=== PATIENT | male | born 1945 | race Caucasian/White ===

== ENCOUNTER 2017-10-15 09:14 | Inpatient (IN) | payer OTHER, MEDICARE ==
[~2017-10-15] VITALS: Ht 176.5 cm; Wt 96.1 kg
[2017-10-15] VITALS (12 sets, daily range): BP systolic 150–166; BP diastolic 60–80
[2017-10-15] MEDS ORDERED: nitroGLYCERIN 0.4mg SUBLingual tab SL PRN ×3 (09:35→10:55)
[2017-10-15] MEDS ORDERED: aspirin 81mg tab.chew PO ONE (09:35)
[2017-10-15] MEDS ORDERED: heparin 10,000 units/1 ML INJ IV ONE ×2 (09:40→11:00)
[2017-10-15] MEDS ORDERED: ATOR40TA PO (09:47)
[2017-10-15] MEDS ORDERED: SILD100T PO (09:48)
[2017-10-15] MEDS ORDERED: fentaNYL/PF 50MCG/1 ML 2ML syringe ONE (09:55)
[2017-10-15] MEDS ORDERED: iohexol 350 MG/1 ML 200ml bottle ONE (09:55)
[2017-10-15] MEDS ORDERED: LIDOcaine 1%/PF (10mg/ml) 5ml vial ONE (09:55)
[2017-10-15] MEDS ORDERED: midazolam 2 mg/2 ml injection ONE (09:55)
[2017-10-15 10:04] LABS: BASOPHILS % (AUTO) 0.8 % (0-1); EOSINOPHILS # (AUTO) 0.1 X10'3 (0-0.9); EOSINOPHILS % (AUTO) 2.6 % (0-6); HEMATOCRIT 41.8 % (42.0-52.0); HEMOGLOBIN 14.1 g/dl (14.0-17.9); LYMPHOCYTES # (AUTO) 1.1 X10'3 (1.1-4.8); LYMPHOCYTES % (AUTO) 20.6 % (21-51); MEAN CORPUSCULAR HEMOGLOBIN 35.7 PG (27.0-31.0); MEAN CORPUSCULAR HGB CONC 33.8 % (33.0-36.5); MEAN CORPUSCULAR VOLUME 105.4 FL (78-98); MEAN PLATELET VOLUME 7.2 FL (7.4-10.4); MONOCYTES # (AUTO) 0.7 X10'3 (0-0.9); MONOCYTES % (AUTO) 12.9 % (2-12); NEUTROPHILS # (AUTO) 3.3 X10'3 (1.8-7.7); NEUTROPHILS % (AUTO) 63.1 % (42-75); PLATELET COUNT 201 X10'3 (140-440); RED BLOOD COUNT 3.97 X10'6 (4.70-6.10); RED CELL DISTRIBUTION WIDTH 12.8 % (11.5-14.5); WHITE BLOOD COUNT 5.3 X10'3 (4.5-11.0)
[2017-10-15 10:10] LABS: ALANINE AMINOTRANSFERASE 69 U/L (12-78); ALBUMIN 3.8 G/DL (3.4-5.0); ALBUMIN/GLOBULIN RATIO 1.2 (1.1-1.5); ALKALINE PHOSPHATASE 103 IU/L (46-116); ANION GAP 7 (8-16); ASPARTATE AMINO TRANSFERASE 57 U/L (10-37); BILIRUBIN,TOTAL 0.9 MG/DL (0.1-1.0); BLOOD UREA NITROGEN 21 MG/DL (7-18); BUN/CREATININE RATIO 19.3 (5.4-32.0); CALCIUM 9.2 MG/DL (8.5-10.1); CHLORIDE 105 MMOL/L (99-107); CREATININE 1.09 MG/DL (0.60-1.10); GLUCOSE 114 MG/DL (70-104); POTASSIUM 3.7 MMOL/L (3.5-5.1); SODIUM 141 MMOL/L (135-145); TOTAL CARBON DIOXIDE 28.6 MMOL/L (24-32); TOTAL PROTEIN 7.1 G/DL (6.4-8.2); eGFR 66 ML/MIN
[2017-10-15 10:20] LABS: INR 1.1 INR; PROTHROMBIN TIME 11.4 SECONDS (9.0-12.0)
[2017-10-15 10:24] LABS: PARTIAL THROMBOPLASTIN TIME > 153 SECONDS (22-32)
[2017-10-15] MEDS ORDERED: tirofiban 5mg in NS 100mL 100 ML IV ONE (10:24)
[2017-10-15] MEDS ORDERED: heparin 1,000unit/ml 10ml vial 10 ML ONE (10:25)
[2017-10-15] MEDS ORDERED: atropine 0.1mg/ml 10ml syringe ONE (10:28)
[2017-10-15] MEDS ORDERED: MESSAGE TO NURSING PO ONE ×4 (10:40)
[2017-10-15] MEDS ORDERED: dextrose 50%-water 50ml dispensing syringe IV PRN (10:40)
[2017-10-15] MEDS ORDERED: MESSAGE TO NURSING IV ONE (10:40)
[2017-10-15] MEDS ORDERED: heparin 10,000 units/1 ML INJ IV PRN ×2 (11:00→20:45)
[2017-10-15] MEDS ORDERED: ringers solution, lacted 1,000 ML IV ONE (11:26)
[2017-10-15] MEDS ORDERED: calcium chloride 100 MG/1 ML inj IV ONE (12:00)
[2017-10-15] MEDS ORDERED: magnesium sulf 1 GM/2 ML ONE (12:00)
[2017-10-15] MEDS ORDERED: methylPREDNISolone sod. succ. 500mg inj ONE (12:00)
[2017-10-15] MEDS ORDERED: heparin 10,000 units/1 ML INJ ONE (12:00)
[2017-10-15] MEDS ORDERED: heparin 1,000 units/ml 10ml inj ONE (12:00)
[2017-10-15] MEDS ORDERED: LIDOcaine 2% (20 mg/ml) 5ml cardiac syringe ONE (12:00)
[2017-10-15] MEDS ORDERED: phenylephrine 10mg/ml inj IV ONE (12:00)
[2017-10-15] MEDS ORDERED: sodium bicarbonate (8.4%) 1 mEq/ml syringe ONE (12:00)
[2017-10-15] MEDS ORDERED: albumin (human) 25% 100 ML IV solution IV ONE (12:00)
[2017-10-15] MEDS: tirofiban 5mg in NS 100mL 100 ML IV SCH ×3 (12:34→23:22)
[2017-10-15 13:15] LABS: HEMOGLOBIN A1C 5.5 % (4.5-6.2)
[2017-10-15 13:22] LABS: ALBUMIN 3.6 G/DL (3.4-5.0); ANION GAP 9 (8-16); BLOOD UREA NITROGEN 18 MG/DL (7-18); BUN/CREATININE RATIO 20.9 (5.4-32.0); CALCIUM 8.8 MG/DL (8.5-10.1); CHLORIDE 106 MMOL/L (99-107); CHOL/HDL RATIO 2.2 (0.00-4.99); CHOLESTEROL 104 MG/DL (0-200); CREATININE 0.86 MG/DL (0.60-1.10); GLUCOSE 118 MG/DL (70-104); HDL CHOLESTEROL 47 MG/DL (35-60); LDL CHOLESTEROL 58 MG/DL (50-100); SODIUM 140 MMOL/L (135-145); TOTAL CARBON DIOXIDE 24.6 MMOL/L (24-32); TRIGLYCERIDES 17 MG/DL (20-135); eGFR 87 ML/MIN
[2017-10-15] MEDS ORDERED: HYDROcodone/acetaminophen 5mg/325mg tablet PO PRN ×2 (16:40)
[2017-10-15 17:25] LABS: ABG BASE EXCESS -1.3 mmol/L (-2.0-3.0); ABG HCO3 21.9 mmol/L (22.0-26.0); ABG OXYGEN SATURATION 96.7 % (95-98); ABG PCO2 (T) 32.2 mmHg (35.0-48.0); ABG PO2 (T) 84.8 mmHg (83-108); ALLEN'S TEST Positive; FCOHb 0.2 % (0.5-1.5); FO2Hb 96.5 % (94-100); TOTAL HEMOGLOBIN 13.7 G/dl (14.0-18.0)
[2017-10-15 17:44] LABS: INR 1.1 INR; PROTHROMBIN TIME 11.2 SECONDS (9.0-12.0)
[2017-10-15 19:49] LABS: MAGNESIUM 1.9 MG/DL (1.5-2.4); PHOSPHORUS 2.9 MG/DL (2.3-4.5); POTASSIUM 3.6 MMOL/L (3.5-5.1)
[2017-10-15] MEDS ORDERED: mupirocin 2% ointment 22GM NS SCH (20:00)
[2017-10-15] MEDS ORDERED: metoprolol tartrate 25mg tablet PO SCH (20:00)
[2017-10-15] MEDS ORDERED: magnesium Cl slow-release 64mg tablet PO PRN (20:15)
[2017-10-15] MEDS ORDERED: normal saline 1000ml 1,000 ML IV SCH (20:15)
[2017-10-15] MEDS ORDERED: potassium Cl 40MEQ/NS 500ml 500 ML IV PRN ×2 (20:15)
[2017-10-15] MEDS ORDERED: potassium Cl 20 mEq SR tablet PO PRN ×2 (20:15)
[2017-10-15] MEDS ORDERED: magnesium 2GM in 50ml NS 50 ML IV PRN (20:15)
[2017-10-15] MEDS ORDERED: magnesium 4gm in 100ml NS 100 ML IV PRN (20:15)
[2017-10-15] MEDS ORDERED: potassium Cl 20 mEq SR tablet PO STA (20:15)
[2017-10-16] VITALS (20 sets, daily range): BP systolic 119–169; BP diastolic 54–79
[2017-10-16 03:59] LABS: BASOPHILS % (AUTO) 0.3 % (0-1); EOSINOPHILS # (AUTO) 0.1 X10'3 (0-0.9); EOSINOPHILS % (AUTO) 1.6 % (0-6); HEMATOCRIT 38.7 % (42.0-52.0); HEMOGLOBIN 13.2 g/dl (14.0-17.9); LYMPHOCYTES # (AUTO) 1.5 X10'3 (1.1-4.8); LYMPHOCYTES % (AUTO) 24.3 % (21-51); MEAN CORPUSCULAR HEMOGLOBIN 35.4 PG (27.0-31.0); MEAN CORPUSCULAR VOLUME 104.2 FL (78-98); MEAN PLATELET VOLUME 7.3 FL (7.4-10.4); MONOCYTES # (AUTO) 0.7 X10'3 (0-0.9); MONOCYTES % (AUTO) 11.3 % (2-12); NEUTROPHILS # (AUTO) 3.8 X10'3 (1.8-7.7); NEUTROPHILS % (AUTO) 62.5 % (42-75); PLATELET COUNT 182 X10'3 (140-440); RED BLOOD COUNT 3.71 X10'6 (4.70-6.10); RED CELL DISTRIBUTION WIDTH 13.2 % (11.5-14.5); WHITE BLOOD COUNT 6.1 X10'3 (4.5-11.0)
[2017-10-16 04:08] LABS: ALBUMIN 3.2 G/DL (3.4-5.0); ANION GAP 9 (8-16); BLOOD UREA NITROGEN 14 MG/DL (7-18); BUN/CREATININE RATIO 16.1 (5.4-32.0); CALCIUM 8.3 MG/DL (8.5-10.1); CHLORIDE 107 MMOL/L (99-107); CREATININE 0.87 MG/DL (0.60-1.10); GLUCOSE 116 MG/DL (70-104); MAGNESIUM 2.2 MG/DL (1.5-2.4); POTASSIUM 4.1 MMOL/L (3.5-5.1); SODIUM 141 MMOL/L (135-145); TOTAL CARBON DIOXIDE 25.5 MMOL/L (24-32); eGFR 86 ML/MIN
[2017-10-16] MEDS: tirofiban 5mg in NS 100mL 100 ML IV SCH (05:33)
[2017-10-16] MEDS ORDERED: famotidine 20mg tablet PO ONE (06:00)
[2017-10-16] MEDS ORDERED: LORazepam 2 mg/ml vial IV ONE (06:00)
[2017-10-16] MEDS ORDERED: ceFAZolin inj. 3,000 MG in normal saline 100ml IV soln 100 ML IV ONE (06:00)
[2017-10-16] MEDS: insulin regular, human inj. 100 UNITS in normal saline 100ml IV soln 100 ML IV SCH ×10 (06:00→22:14)
[2017-10-16] MEDS ORDERED: SUFENTANIL CITRATE 50 MCG/ML 2ml ampule IV ONE (06:36)
[2017-10-16] MEDS ORDERED: isoflurane 100ml inhalation liquid IH ONE (06:37)
[2017-10-16] MEDS ORDERED: DOPamine/D5W 400mg/250ml bag IV ONE (06:37)
[2017-10-16] MEDS ORDERED: nitroGLYCERIN in D5W 50mg/250ml (Tridil) infusion IV ONE (06:37)
[2017-10-16] MEDS ORDERED: LIDOcaine 1%/PF (10mg/ml) 5ml vial ONE (06:42)
[2017-10-16] MEDS ORDERED: LORazepam 2 mg/ml vial ONE (06:42)
[2017-10-16] MEDS ORDERED: propofol inj 20 ML IV ONE (06:42)
[2017-10-16] MEDS ORDERED: pancuronium br 1mg/ml inj IV ONE (06:43)
[2017-10-16] MEDS ORDERED: rocuronium 10mg/ml inj IV ONE (06:43)
[2017-10-16 07:45] LABS: ABG BASE EXCESS -1.4 mmol/L (-2.0-3.0); ABG HCO3 22.1 mmol/L (22.0-26.0); ABG OXYGEN SATURATION 98.6 % (95-98); ABG PCO2 33.2 mmHg (35.0-45.0); ABG PH 7.441 (7.350-7.450); ABG PO2 133.8 mmHg (60.0-100.0); CL (ABG) 106 mmol/L (99-107); FCOHb 0.3 % (0.5-1.5); FMetHb 0.3 % (0.3-1.12); GLUCOSE (ABG) 121 mg/dl (70-105); IONIZED CA (ABG) 1.15 mmol/L (1.03-1.32); K (ABG) 3.9 mmol/L (3.3-5.1); NA (ABG) 137 mmol/L (135-145); TOTAL HEMOGLOBIN 12.6 G/dl (14.0-18.0)
[2017-10-16] MEDS ORDERED: heparin 10,000 units/1 ML INJ IJ ONE (07:46)
[2017-10-16] MEDS ORDERED: papaverine 30 mg/ml 2ml inj. IA ONE ×2 (07:48→11:09)
[2017-10-16] MEDS ORDERED: atorvastatin 20mg tablet PO SCH (08:00)
[2017-10-16] MEDS ORDERED: papaverine 30 mg/ml 2ml inj. ONE (08:00)
[2017-10-16] MEDS ORDERED: heparin 10,000 units/1 ML INJ ONE (08:00)
[2017-10-16] MEDS ORDERED: aspirin 81mg tab.chew PO SCH (08:30)
[2017-10-16] MEDS ORDERED: insulin Lispro (HumaLOG) vial - multi-dose SQ SCH (09:00)
[2017-10-16 09:01] LABS: ABG BASE EXCESS 2.1 mmol/L (-2.0-3.0); ABG HCO3 26.6 mmol/L (22.0-26.0); ABG OXYGEN SATURATION 98.6 % (95-98); ABG PCO2 41.2 mmHg (35.0-45.0); ABG PH 7.428 (7.350-7.450); ABG PO2 203.4 mmHg (60.0-100.0); CL (ABG) 106 mmol/L (99-107); FCOHb 0.3 % (0.5-1.5); FMetHb 0.5 % (0.3-1.12); FO2Hb 97.8 % (94-100); GLUCOSE (ABG) 112 mg/dl (70-105); IONIZED CA (ABG) 1.03 mmol/L (1.03-1.32); K (ABG) 5.4 mmol/L (3.3-5.1); NA (ABG) 135 mmol/L (135-145)
[2017-10-16 09:16] LABS: ABG BASE EXCESS VENOUS 1.8 mmol/L; ABG HCO3 VENOUS 27.2 mmol/L; ABG PCO2 VENOUS 45.9 mmHg; ABG PO2 VENOUS 48.1 mmHg; CL (ABG) 106 mmol/L (99-107); FCOHb VENOUS 0.3 %; FHHb VENOUS 16.3 %; FMetHb VENOUS 0.5 %; FO2Hb VENOUS 82.9 %; GLUCOSE (ABG) 119 mg/dl (70-105); IONIZED CA (ABG) 1.07 mmol/L (1.03-1.32); K (ABG) 4.6 mmol/L (3.3-5.1); NA (ABG) 136 mmol/L (135-145); TOTAL HEMOGLOBIN 10.2 G/dl (14.0-18.0)
[2017-10-16 09:51] LABS: ABG BASE EXCESS 0.8 mmol/L (-2.0-3.0); ABG HCO3 25.4 mmol/L (22.0-26.0); ABG OXYGEN SATURATION 98.6 % (95-98); ABG PCO2 40.4 mmHg (35.0-45.0); ABG PH 7.416 (7.350-7.450); ABG PO2 164.3 mmHg (60.0-100.0); CL (ABG) 108 mmol/L (99-107); FCOHb 0.3 % (0.5-1.5); FMetHb 0.3 % (0.3-1.12); GLUCOSE (ABG) 134 mg/dl (70-105); IONIZED CA (ABG) 1.06 mmol/L (1.03-1.32); NA (ABG) 136 mmol/L (135-145); TOTAL HEMOGLOBIN 9.9 G/dl (14.0-18.0)
[2017-10-16] MEDS ORDERED: MESSAGE TO NURSING PO ONE (10:00)
[2017-10-16 10:30] LABS: ABG BASE EXCESS 2.5 mmol/L (-2.0-3.0); ABG HCO3 27.5 mmol/L (22.0-26.0); ABG OXYGEN SATURATION 99.3 % (95-98); ABG PCO2 44.4 mmHg (35.0-45.0); ABG PO2 457.6 mmHg (60.0-100.0); CL (ABG) 107 mmol/L (99-107); FCOHb 0.3 % (0.5-1.5); FMetHb 0.4 % (0.3-1.12); FO2Hb 98.6 % (94-100); GLUCOSE (ABG) 131 mg/dl (70-105); IONIZED CA (ABG) 1.17 mmol/L (1.03-1.32); K (ABG) 4.7 mmol/L (3.3-5.1); NA (ABG) 136 mmol/L (135-145); TOTAL HEMOGLOBIN 9.3 G/dl (14.0-18.0)
[2017-10-16 11:06] LABS: ABG BASE EXCESS 0.7 mmol/L (-2.0-3.0); ABG HCO3 25.1 mmol/L (22.0-26.0); ABG OXYGEN SATURATION 99.1 % (95-98); ABG PH 7.426 (7.350-7.450); ABG PO2 309.3 mmHg (60.0-100.0); CL (ABG) 109 mmol/L (99-107); FCOHb 0.3 % (0.5-1.5); FMetHb 0.6 % (0.3-1.12); FO2Hb 98.2 % (94-100); GLUCOSE (ABG) 131 mg/dl (70-105); IONIZED CA (ABG) 1.21 mmol/L (1.03-1.32); K (ABG) 4.1 mmol/L (3.3-5.1); NA (ABG) 137 mmol/L (135-145); TOTAL HEMOGLOBIN 9.8 G/dl (14.0-18.0)
[2017-10-16] MEDS ORDERED: sodium chloride 0.45% 1,000 ML IV SCH (11:39)
[2017-10-16] MEDS ORDERED: nitroGLYCERIN-Tridil 50MG/D5W 250 ML IV PRN (11:39)
[2017-10-16] MEDS ORDERED: DOPamine 400mg/D5W 250ml 250 ML IV PRN (11:39)
[2017-10-16] MEDS ORDERED: niCARDipine/sod cl 20mg/200ml 200 ML IV PRN (11:39)
[2017-10-16] MEDS ORDERED: metoclopramide 5 mg/ml inj IV PRN (11:40)
[2017-10-16] MEDS ORDERED: magnesium 4gm in 100ml NS 100 ML IV PRN (11:40)
[2017-10-16] MEDS ORDERED: ondansetron/PF 4mg/2ml inj IV PRN (11:40)
[2017-10-16] MEDS ORDERED: sodium phosphate inj. 15 MMOL in dextrose 5%-water 150 ML IV PRN (11:40)
[2017-10-16] MEDS ORDERED: potassium Cl 20mEq/100mL bag 100 ML IV PRN ×2 (11:40)
[2017-10-16] MEDS ORDERED: dextrose 50%-water 50ml dispensing syringe IV PRN (11:40)
[2017-10-16] MEDS ORDERED: morphine sulfate 8 MG/ML SYRINGE IV PRN (11:40)
[2017-10-16] MEDS ORDERED: acetaminophen 325mg tablet PO PRN (11:40)
[2017-10-16] MEDS ORDERED: sodium phosphate inj. 30 MMOL in dextrose 5%-water 250 ML IV PRN (11:40)
[2017-10-16] MEDS ORDERED: Neutra Phos packet PO PRN (11:40)
[2017-10-16] MEDS ORDERED: insulin regular, human inj. 100 UNITS in normal saline 100ml IV soln 100 ML IV SCH ×2 (11:40)
[2017-10-16] MEDS ORDERED: normal saline 250ml IV soln 250 ML IV PRN (11:40)
[2017-10-16] MEDS ORDERED: magnesium hydroxide 30ml (MOM) UD suspension PO PRN (11:40)
[2017-10-16] MEDS ORDERED: potassium Cl 2 mEq/ml inj IV ONE (12:00)
[2017-10-16 12:10] LABS: ABG BASE EXCESS -0.1 mmol/L (-2.0-3.0); ABG HCO3 23.4 mmol/L (22.0-26.0); ABG OXYGEN SATURATION 98.9 % (95-98); ABG PCO2 (T) 32.8 mmHg (35.0-48.0); ABG PH (T) 7.466 (7.350-7.450); ABG PO2 (T) 168.1 mmHg (83-108); FCOHb 0.3 % (0.5-1.5); FMetHb 0.1 % (0.3-1.12); FO2Hb 98.5 % (94-100); MINUTE VOLUME 9 L/min; PEEP 5 cm H2O; RESPIRATORY RATE 12 b/min; RESPIRATORY RATE (OBSERVED) 12 b/min; TIDAL VOLUME 650 mL; TOTAL HEMOGLOBIN 12.7 G/dl (14.0-18.0)
[2017-10-16 12:12] LABS: BASOPHILS % (AUTO) 0.1 % (0-1); EOSINOPHILS # (AUTO) 0.1 X10'3 (0-0.9); EOSINOPHILS % (AUTO) 1.5 % (0-6); HEMATOCRIT 35.5 % (42.0-52.0); LYMPHOCYTES # (AUTO) 0.6 X10'3 (1.1-4.8); LYMPHOCYTES % (AUTO) 7.3 % (21-51); MEAN CORPUSCULAR HEMOGLOBIN 35.3 PG (27.0-31.0); MEAN CORPUSCULAR HGB CONC 33.9 % (33.0-36.5); MEAN PLATELET VOLUME 6.9 FL (7.4-10.4); MONOCYTES # (AUTO) 0.2 X10'3 (0-0.9); NEUTROPHILS # (AUTO) 7.2 X10'3 (1.8-7.7); NEUTROPHILS % (AUTO) 89.1 % (42-75); PLATELET COUNT 123 X10'3 (140-440); RED BLOOD COUNT 3.41 X10'6 (4.70-6.10); RED CELL DISTRIBUTION WIDTH 13.6 % (11.5-14.5); WHITE BLOOD COUNT 8.1 X10'3 (4.5-11.0)
[2017-10-16 12:26] LABS: ALANINE AMINOTRANSFERASE 65 U/L (12-78); ALBUMIN 2.9 G/DL (3.4-5.0); ALBUMIN/GLOBULIN RATIO 1.2 (1.1-1.5); ALKALINE PHOSPHATASE 53 IU/L (46-116); ANION GAP 6 (8-16); ASPARTATE AMINO TRANSFERASE 250 U/L (10-37); BILIRUBIN,TOTAL 0.9 MG/DL (0.1-1.0); BLOOD UREA NITROGEN 14 MG/DL (7-18); BUN/CREATININE RATIO 16.1 (5.4-32.0); CALCIUM 7.9 MG/DL (8.5-10.1); CHLORIDE 111 MMOL/L (99-107); CREATININE 0.87 MG/DL (0.60-1.10); GLUCOSE 145 MG/DL (70-104); MAGNESIUM 2.3 MG/DL (1.5-2.4); PHOSPHORUS 1.4 MG/DL (2.3-4.5); POTASSIUM 3.9 MMOL/L (3.5-5.1); SODIUM 143 MMOL/L (135-145); TOTAL CARBON DIOXIDE 26.1 MMOL/L (24-32); TOTAL PROTEIN 5.3 G/DL (6.4-8.2); eGFR 86 ML/MIN
[2017-10-16] MEDS: morphine sulfate 8 MG/ML SYRINGE IV PRN ×5 (12:44→17:45)
[2017-10-16] MEDS: insulin Lispro (HumaLOG) vial - multi-dose SQ SCH ×2 (13:00→16:23)
[2017-10-16 13:01] LABS: INR 1.2 INR; PARTIAL THROMBOPLASTIN TIME 30 SECONDS (22-32); PROTHROMBIN TIME 12.2 SECONDS (9.0-12.0)
[2017-10-16] MEDS: albumin (Human) 5% 250ml 250 ML IV PRN ×2 (13:37→15:45)
[2017-10-16] MEDS: potassium Cl 20mEq/100mL bag 100 ML IV PRN ×2 (13:46→17:15)
[2017-10-16] MEDS: CEFAZOLIN SODIUM/NORMAL SALINE 100 ML IV SCH ×2 (16:20→23:14)
[2017-10-16] MEDS: lactobacillus rhamnosus 10,000 MMU CELLS/CAPSULE PO SCH (16:23)
[2017-10-16 17:29] LABS: BASOPHILS % (AUTO) 0 % (0-1); EOSINOPHILS # (AUTO) 0.1 X10'3 (0-0.9); EOSINOPHILS % (AUTO) 1.3 % (0-6); HEMATOCRIT 32.2 % (42.0-52.0); HEMOGLOBIN 10.9 g/dl (14.0-17.9); LYMPHOCYTES # (AUTO) 0.5 X10'3 (1.1-4.8); LYMPHOCYTES % (AUTO) 5.4 % (21-51); MEAN CORPUSCULAR HEMOGLOBIN 35.4 PG (27.0-31.0); MEAN CORPUSCULAR HGB CONC 33.9 % (33.0-36.5); MEAN CORPUSCULAR VOLUME 104.4 FL (78-98); MEAN PLATELET VOLUME 6.7 FL (7.4-10.4); MONOCYTES # (AUTO) 0.3 X10'3 (0-0.9); MONOCYTES % (AUTO) 3.5 % (2-12); NEUTROPHILS # (AUTO) 7.5 X10'3 (1.8-7.7); NEUTROPHILS % (AUTO) 89.8 % (42-75); PLATELET COUNT 134 X10'3 (140-440); RED BLOOD COUNT 3.08 X10'6 (4.70-6.10); RED CELL DISTRIBUTION WIDTH 12.9 % (11.5-14.5); WHITE BLOOD COUNT 8.4 X10'3 (4.5-11.0)
[2017-10-16 17:38] LABS: ALBUMIN 3.3 G/DL (3.4-5.0); ANION GAP 6 (8-16); BLOOD UREA NITROGEN 16 MG/DL (7-18); BUN/CREATININE RATIO 15.2 (5.4-32.0); CALCIUM 7.8 MG/DL (8.5-10.1); CHLORIDE 111 MMOL/L (99-107); CREATININE 1.05 MG/DL (0.60-1.10); GLUCOSE 159 MG/DL (70-104); POTASSIUM 4.2 MMOL/L (3.5-5.1); SODIUM 143 MMOL/L (135-145); TOTAL CARBON DIOXIDE 26.1 MMOL/L (24-32); eGFR 69 ML/MIN
[2017-10-16] MEDS ORDERED: amiodarone 150mg/dext, iso-os 100 ML IV ONE (18:12)
[2017-10-16] MEDS ORDERED: amiodarone/D5 360MG/200ML BAG 200 ML IV ONE (18:29)
[2017-10-16] MEDS ORDERED: amiodarone/D5 360MG/200ML BAG 200 ML IV SCH (18:35)
[2017-10-16] MEDS ORDERED: amiodarone in dextrose, iso-osm 150mg/100ml bag IV ONE (18:35)
[2017-10-16 18:57] LABS: MAGNESIUM 2.1 MG/DL (1.5-2.4)
[2017-10-16] MEDS: magnesium 2GM in 50ml NS 50 ML IV PRN (19:11)
[2017-10-16] MEDS ORDERED: metoprolol tartrate 12.5mg (1/2 tablet) PO SCH (20:00)
[2017-10-16] MEDS: vancomycin/NS 1 GM ADD-VANTAGE 250 ML IV SCH (20:24)
[2017-10-16] MEDS: mupirocin 2% ointment 22GM NS SCH (20:24)
[2017-10-16] MEDS: docusate sod 100mg capsule PO SCH (20:51)
[2017-10-16] MEDS: HYDROcodone/acetaminophen 10/325mg tab PO PRN (20:52)
[2017-10-16 22:55] LABS: MAGNESIUM 2.6 MG/DL (1.5-2.4); PHOSPHORUS 2.8 MG/DL (2.3-4.5); POTASSIUM 4.2 MMOL/L (3.5-5.1)
[2017-10-16] MEDS ORDERED: potassium Cl 20mEq/100mL bag 100 ML IV ONE (23:24)
[2017-10-17] VITALS (22 sets, daily range): BP systolic 115–147; BP diastolic 52–79
[2017-10-17] MEDS: insulin regular, human inj. 100 UNITS in normal saline 100ml IV soln 100 ML IV SCH ×6 (01:14→11:29)
[2017-10-17 04:07] LABS: BASOPHILS % (AUTO) 0.1 % (0-1); EOSINOPHILS % (AUTO) 0.4 % (0-6); HEMATOCRIT 29.3 % (42.0-52.0); HEMOGLOBIN 9.9 g/dl (14.0-17.9); LYMPHOCYTES # (AUTO) 0.6 X10'3 (1.1-4.8); LYMPHOCYTES % (AUTO) 4.5 % (21-51); MEAN CORPUSCULAR HEMOGLOBIN 35.4 PG (27.0-31.0); MEAN CORPUSCULAR HGB CONC 33.7 % (33.0-36.5); MONOCYTES # (AUTO) 0.8 X10'3 (0-0.9); MONOCYTES % (AUTO) 6.4 % (2-12); NEUTROPHILS # (AUTO) 10.8 X10'3 (1.8-7.7); NEUTROPHILS % (AUTO) 88.6 % (42-75); PLATELET COUNT 124 X10'3 (140-440); RED BLOOD COUNT 2.79 X10'6 (4.70-6.10); WHITE BLOOD COUNT 12.2 X10'3 (4.5-11.0)
[2017-10-17 04:30] LABS: INR 1.1 INR; PARTIAL THROMBOPLASTIN TIME 29 SECONDS (22-32); PROTHROMBIN TIME 11.6 SECONDS (9.0-12.0)
[2017-10-17 04:33] LABS: ALANINE AMINOTRANSFERASE 57 U/L (12-78); ALBUMIN/GLOBULIN RATIO 1.3 (1.1-1.5); ALKALINE PHOSPHATASE 42 IU/L (46-116); ANION GAP 6 (8-16); ASPARTATE AMINO TRANSFERASE 194 U/L (10-37); BILIRUBIN,TOTAL 0.5 MG/DL (0.1-1.0); BLOOD UREA NITROGEN 18 MG/DL (7-18); BUN/CREATININE RATIO 18.2 (5.4-32.0); CALCIUM 7.5 MG/DL (8.5-10.1); CHLORIDE 109 MMOL/L (99-107); CREATININE 0.99 MG/DL (0.60-1.10); GLUCOSE 154 MG/DL (70-104); MAGNESIUM 2.4 MG/DL (1.5-2.4); PHOSPHORUS 2.9 MG/DL (2.3-4.5); POTASSIUM 4.5 MMOL/L (3.5-5.1); SODIUM 141 MMOL/L (135-145); TOTAL CARBON DIOXIDE 25.7 MMOL/L (24-32); TOTAL PROTEIN 5.3 G/DL (6.4-8.2); eGFR 74 ML/MIN
[2017-10-17] MEDS: HYDROcodone/acetaminophen 10/325mg tab PO PRN ×3 (05:15→21:19)
[2017-10-17] MEDS: magnesium 2GM in 50ml NS 50 ML IV PRN (05:55)
[2017-10-17] MEDS: pantoprazole 40mg Tablet.DR PO SCH (07:34)
[2017-10-17] MEDS: lactobacillus rhamnosus 10,000 MMU CELLS/CAPSULE PO SCH ×2 (07:34→17:24)
[2017-10-17] MEDS: aspirin 325mg tablet, delayed-release (Ecotrin) PO SCH (08:37)
[2017-10-17] MEDS: atorvastatin 10mg tablet PO SCH (08:37)
[2017-10-17] MEDS: CEFAZOLIN SODIUM/NORMAL SALINE 100 ML IV SCH ×2 (08:37→17:24)
[2017-10-17] MEDS: docusate sod 100mg capsule PO SCH ×2 (08:37→20:47)
[2017-10-17] MEDS: mupirocin 2% ointment 22GM NS SCH ×2 (08:43→20:48)
[2017-10-17] MEDS: metoprolol tartrate 12.5mg (1/2 tablet) PO SCH ×2 (08:45→20:00)
[2017-10-17] MEDS: insulin Lispro (HumaLOG) vial - multi-dose SQ SCH ×3 (08:59→19:02)
[2017-10-17] MEDS: vancomycin/NS 1 GM ADD-VANTAGE 250 ML IV SCH ×2 (09:47→20:48)
[2017-10-17] MEDS: amiodarone 200mg tablet PO SCH ×2 (10:25→20:47)
[2017-10-18] VITALS (14 sets, daily range): BP systolic 111–141; BP diastolic 62–82
[2017-10-18] MEDS: CEFAZOLIN SODIUM/NORMAL SALINE 100 ML IV SCH (01:14)
[2017-10-18] MEDS: HYDROcodone/acetaminophen 10/325mg tab PO PRN ×4 (04:05→20:20)
[2017-10-18 04:43] LABS: BASOPHILS % (AUTO) 0.1 % (0-1); EOSINOPHILS # (AUTO) 0.2 X10'3 (0-0.9); EOSINOPHILS % (AUTO) 1.5 % (0-6); HEMATOCRIT 30.9 % (42.0-52.0); HEMOGLOBIN 10.3 g/dl (14.0-17.9); LYMPHOCYTES # (AUTO) 1.3 X10'3 (1.1-4.8); LYMPHOCYTES % (AUTO) 10.4 % (21-51); MEAN CORPUSCULAR HEMOGLOBIN 35.1 PG (27.0-31.0); MEAN CORPUSCULAR HGB CONC 33.3 % (33.0-36.5); MEAN CORPUSCULAR VOLUME 105.2 FL (78-98); MEAN PLATELET VOLUME 7.9 FL (7.4-10.4); MONOCYTES # (AUTO) 0.8 X10'3 (0-0.9); NEUTROPHILS # (AUTO) 10.3 X10'3 (1.8-7.7); PLATELET COUNT 117 X10'3 (140-440); RED BLOOD COUNT 2.94 X10'6 (4.70-6.10); RED CELL DISTRIBUTION WIDTH 13.6 % (11.5-14.5); WHITE BLOOD COUNT 12.6 X10'3 (4.5-11.0)
[2017-10-18 04:58] LABS: ANION GAP 6 (8-16); BLOOD UREA NITROGEN 19 MG/DL (7-18); BUN/CREATININE RATIO 18.6 (5.4-32.0); CALCIUM 8.1 MG/DL (8.5-10.1); CHLORIDE 104 MMOL/L (99-107); CREATININE 1.02 MG/DL (0.60-1.10); GLUCOSE 125 MG/DL (70-104); PHOSPHORUS 2.7 MG/DL (2.3-4.5); POTASSIUM 4.6 MMOL/L (3.5-5.1); SODIUM 137 MMOL/L (135-145); TOTAL CARBON DIOXIDE 26.6 MMOL/L (24-32); eGFR 72 ML/MIN
[2017-10-18] MEDS: aspirin 325mg tablet, delayed-release (Ecotrin) PO SCH (08:25)
[2017-10-18] MEDS: amiodarone 200mg tablet PO SCH ×2 (08:25→20:02)
[2017-10-18] MEDS: metoprolol tartrate 12.5mg (1/2 tablet) PO SCH ×2 (08:25→20:02)
[2017-10-18] MEDS: pantoprazole 40mg Tablet.DR PO SCH (08:25)
[2017-10-18] MEDS: docusate sod 100mg capsule PO SCH ×2 (08:25→20:02)
[2017-10-18] MEDS: lactobacillus rhamnosus 10,000 MMU CELLS/CAPSULE PO SCH ×2 (08:25→17:47)
[2017-10-18] MEDS: atorvastatin 10mg tablet PO SCH (08:26)
[2017-10-18] MEDS: mupirocin 2% ointment 22GM NS SCH (08:26)
[2017-10-18] MEDS ORDERED: potassium Cl 20 mEq SR tablet PO PRN ×2 (08:35)
[2017-10-18] MEDS ORDERED: magnesium Cl slow-release 64mg tablet PO PRN (08:35)
[2017-10-18] MEDS ORDERED: magnesium 2GM in 50ml NS 50 ML IV PRN (08:35)
[2017-10-18] MEDS ORDERED: magnesium 4gm in 100ml NS 100 ML IV PRN (08:35)
[2017-10-18] MEDS ORDERED: potassium Cl 40MEQ/NS 500ml 500 ML IV PRN ×2 (08:35)
[2017-10-18] MEDS: insulin Lispro (HumaLOG) vial - multi-dose SQ SCH ×3 (09:00→18:00)
[2017-10-18] MEDS: potassium Cl 20 mEq SR tablet PO SCH (18:18)
[2017-10-18] MEDS: magnesium Cl slow-release 64mg tablet PO SCH (20:02)
[2017-10-19 03:05] VITALS: BP 114/56
[2017-10-19 05:42] LABS: BASOPHILS % (AUTO) 0.3 % (0-1); EOSINOPHILS # (AUTO) 0.1 X10'3 (0-0.9); EOSINOPHILS % (AUTO) 1.7 % (0-6); HEMATOCRIT 30.2 % (42.0-52.0); HEMOGLOBIN 10.3 g/dl (14.0-17.9); LYMPHOCYTES # (AUTO) 1.4 X10'3 (1.1-4.8); LYMPHOCYTES % (AUTO) 15.7 % (21-51); MEAN CORPUSCULAR HEMOGLOBIN 35.8 PG (27.0-31.0); MEAN CORPUSCULAR HGB CONC 34.2 % (33.0-36.5); MEAN CORPUSCULAR VOLUME 104.8 FL (78-98); MEAN PLATELET VOLUME 7.7 FL (7.4-10.4); MONOCYTES # (AUTO) 0.6 X10'3 (0-0.9); MONOCYTES % (AUTO) 6.4 % (2-12); NEUTROPHILS # (AUTO) 6.6 X10'3 (1.8-7.7); NEUTROPHILS % (AUTO) 75.9 % (42-75); PLATELET COUNT 124 X10'3 (140-440); RED BLOOD COUNT 2.88 X10'6 (4.70-6.10); RED CELL DISTRIBUTION WIDTH 13.4 % (11.5-14.5); WHITE BLOOD COUNT 8.6 X10'3 (4.5-11.0)
[2017-10-19] MEDS: HYDROcodone/acetaminophen 10/325mg tab PO PRN ×3 (05:43→19:56)
[2017-10-19 06:00] VITALS: BP 126/69
[2017-10-19 06:19] LABS: ALBUMIN 2.9 G/DL (3.4-5.0); ANION GAP 4 (8-16); BLOOD UREA NITROGEN 19 MG/DL (7-18); CALCIUM 8.6 MG/DL (8.5-10.1); CHLORIDE 105 MMOL/L (99-107); GLUCOSE 110 MG/DL (70-104); MAGNESIUM 2.2 MG/DL (1.5-2.4); POTASSIUM 4.6 MMOL/L (3.5-5.1); SODIUM 140 MMOL/L (135-145); TOTAL CARBON DIOXIDE 30.6 MMOL/L (24-32); eGFR 73 ML/MIN
[2017-10-19] MEDS: docusate sod 100mg capsule PO SCH ×2 (07:51→20:00)
[2017-10-19] MEDS: aspirin 325mg tablet, delayed-release (Ecotrin) PO SCH (07:52)
[2017-10-19] MEDS: potassium Cl 20 mEq SR tablet PO SCH ×2 (07:52→18:30)
[2017-10-19] MEDS: pantoprazole 40mg Tablet.DR PO SCH (07:52)
[2017-10-19] MEDS: magnesium Cl slow-release 64mg tablet PO SCH ×2 (07:52→18:29)
[2017-10-19] MEDS: atorvastatin 10mg tablet PO SCH (07:52)
[2017-10-19] MEDS: lactobacillus rhamnosus 10,000 MMU CELLS/CAPSULE PO SCH ×2 (07:53→17:35)
[2017-10-19] MEDS: amiodarone 200mg tablet PO SCH ×2 (07:53→19:55)
[2017-10-19] MEDS: metoprolol tartrate 12.5mg (1/2 tablet) PO SCH ×2 (07:53→19:56)
[2017-10-19] MEDS: K and/or MAG REPLACEMENT MC SCH (07:54)
[2017-10-19] MEDS: insulin Lispro (HumaLOG) vial - multi-dose SQ SCH (07:55)
[2017-10-19] MEDS ORDERED: pneumococcal 23-VAL P-sac vacc 25 mcg/0.5ml vial IMVAC ONE (10:00)
[2017-10-19] MEDS ORDERED: magnesium citrate 296ml oral solution PO ONE (10:15)
[2017-10-19 11:00] VITALS: BP 123/77
[2017-10-19 15:00] VITALS: BP 124/73
[2017-10-19 19:00] VITALS: BP 142/71
[2017-10-19 23:00] VITALS: BP 117/69
[2017-10-20 03:00] VITALS: BP 138/74
[2017-10-20 06:00] VITALS: BP 117/71
[2017-10-20] MEDS: potassium Cl 20 mEq SR tablet PO SCH (06:19)
[2017-10-20] MEDS: K and/or MAG REPLACEMENT MC SCH (06:19)
[2017-10-20] MEDS: magnesium Cl slow-release 64mg tablet PO SCH (06:20)
[2017-10-20] MEDS ORDERED: ASPI-41 PO (07:16)
[2017-10-20] MEDS ORDERED: METO25TA6 PO (07:16)
[2017-10-20] MEDS ORDERED: COL100C PO (07:16)
[2017-10-20] MEDS ORDERED: AMIO200T57 PO (07:16)
[2017-10-20 07:48] LABS: BASOPHILS % (AUTO) 0.3 % (0-1); EOSINOPHILS # (AUTO) 0.1 X10'3 (0-0.9); EOSINOPHILS % (AUTO) 2.1 % (0-6); HEMATOCRIT 29.8 % (42.0-52.0); HEMOGLOBIN 9.9 g/dl (14.0-17.9); LYMPHOCYTES # (AUTO) 0.9 X10'3 (1.1-4.8); LYMPHOCYTES % (AUTO) 14.8 % (21-51); MEAN CORPUSCULAR HEMOGLOBIN 35.2 PG (27.0-31.0); MEAN CORPUSCULAR HGB CONC 33.4 % (33.0-36.5); MEAN CORPUSCULAR VOLUME 105.5 FL (78-98); MONOCYTES # (AUTO) 0.6 X10'3 (0-0.9); MONOCYTES % (AUTO) 10.7 % (2-12); NEUTROPHILS # (AUTO) 4.4 X10'3 (1.8-7.7); NEUTROPHILS % (AUTO) 72.1 % (42-75); PLATELET COUNT 156 X10'3 (140-440); RED BLOOD COUNT 2.82 X10'6 (4.70-6.10); RED CELL DISTRIBUTION WIDTH 13.3 % (11.5-14.5); WHITE BLOOD COUNT 6.1 X10'3 (4.5-11.0)
[2017-10-20] MEDS: amiodarone 200mg tablet PO SCH (07:51)
[2017-10-20] MEDS: lactobacillus rhamnosus 10,000 MMU CELLS/CAPSULE PO SCH (07:51)
[2017-10-20] MEDS: atorvastatin 10mg tablet PO SCH (07:53)
[2017-10-20] MEDS: metoprolol tartrate 12.5mg (1/2 tablet) PO SCH (07:53)
[2017-10-20] MEDS: aspirin 325mg tablet, delayed-release (Ecotrin) PO SCH (07:53)
[2017-10-20] MEDS: docusate sod 100mg capsule PO SCH (07:54)
[2017-10-20] MEDS: pantoprazole 40mg Tablet.DR PO SCH (07:54)
[2017-10-20 08:14] LABS: ALBUMIN 2.9 G/DL (3.4-5.0); ANION GAP 4 (8-16); BLOOD UREA NITROGEN 16 MG/DL (7-18); BUN/CREATININE RATIO 14.3 (5.4-32.0); CALCIUM 8.6 MG/DL (8.5-10.1); CHLORIDE 104 MMOL/L (99-107); CREATININE 1.12 MG/DL (0.60-1.10); GLUCOSE 103 MG/DL (70-104); POTASSIUM 4.2 MMOL/L (3.5-5.1); SODIUM 138 MMOL/L (135-145); TOTAL CARBON DIOXIDE 30.4 MMOL/L (24-32); eGFR 64 ML/MIN
[2017-10-20] MEDS: HYDROcodone/acetaminophen 10/325mg tab PO PRN (08:36)
[2017-10-20 09:15] LABS: ACT @ 1.70 U 346 SEC (193-297); ACT @ 2.84 U 566 SEC (260-420); BASELINE ACT 144 SEC (101-148); PATIENT WEIGHT 76.0k KG
[2017-10-25 05:31] LABS: ACTIVATED CLOTTING TIME 139 SEC (101-148)
== END 2017-10-20 10:15 | disposition home or self-care (01) | DRG 231 ==
LOC: ER 09:14 → ICU 2S 10:53 → PCU 3S 10-18 13:25
PROVIDERS: ADMIT Internal Medicine Interventional Cardiology; ATTEND Thoracic Surgery (Cardiothoracic Vascular Surgery)
PROC: 4A023N7 Measurement of Cardiac Sampling and Pressure, Left Heart, Percutaneous Approach (ICD-10-PCS; principal; 2017-10-15)
PROC: 02703ZZ Dilation of Coronary Artery, One Artery, Percutaneous Approach (ICD-10-PCS; 2017-10-15)
PROC: B2111ZZ Fluoroscopy of Multiple Coronary Arteries using Low Osmolar Contrast (ICD-10-PCS; 2017-10-15)
PROC: B2151ZZ Fluoroscopy of Left Heart using Low Osmolar Contrast (ICD-10-PCS; 2017-10-15)
PROC: B3121ZZ Fluoroscopy of Left Subclavian Artery using Low Osmolar Contrast (ICD-10-PCS; 2017-10-15)
PROC: 02100Z9 Bypass Coronary Artery, One Artery from Left Internal Mammary, Open Approach (ICD-10-PCS; 2017-10-16)
PROC: 021309W Bypass Coronary Artery, Four or More Arteries from Aorta with Autologous Venous Tissue, Open Approach (ICD-10-PCS; 2017-10-16)
PROC: 06BP4ZZ Excision of Right Saphenous Vein, Percutaneous Endoscopic Approach (ICD-10-PCS; 2017-10-16)
PROC: 5A1221Z Performance of Cardiac Output, Continuous (ICD-10-PCS; 2017-10-16)
PROC: B24BZZ4 Ultrasonography of Heart with Aorta, Transesophageal (ICD-10-PCS; 2017-10-16)
PROC: 02HV33Z Insertion of Infusion Device into Superior Vena Cava, Percutaneous Approach (ICD-10-PCS; 2017-10-16)
PROC: 02HQ32Z Insertion of Monitoring Device into Right Pulmonary Artery, Percutaneous Approach (ICD-10-PCS; 2017-10-16)
PROC: 4A133B3 Monitoring of Arterial Pressure, Pulmonary, Percutaneous Approach (ICD-10-PCS; 2017-10-16)
PROC: 4A1239Z Monitoring of Cardiac Output, Percutaneous Approach (ICD-10-PCS; 2017-10-16)
DX: I21.19 ST elevation (STEMI) myocardial infarction involving other coronary artery of inferior wall (principal); I50.31 Acute diastolic (congestive) heart failure; I47.2 Ventricular tachycardia; I11.0 Hypertensive heart disease with heart failure; I25.10 Atherosclerotic heart disease of native coronary artery without angina pectoris; E78.5 Hyperlipidemia, unspecified; I34.0 Nonrheumatic mitral (valve) insufficiency; G47.33 Obstructive sleep apnea (adult) (pediatric); I10 Essential (primary) hypertension; Z79.899 Other long term (current) drug therapy; Z79.82 Long term (current) use of aspirin; Z87.891 Personal history of nicotine dependence; Z82.49 Family history of ischemic heart disease and other diseases of the circulatory system
CPT/HCPCS: 0232T; 93306; 93312; 93325; 93458; 96374; 99285; C9606; 36415; 36600; 71010; 80048; 80053; 80061; 82330; 82435; 82800; 82803; 82947; 82948; 83036; 83735; 83880; 84100; 84132; 84295; 84484; 85018; 85025; 85347; 85610; 85730; 86885; 86900; 86901; 86920; 87070; 90732; 93005; 93880; 93971; 94002; 94010; 94668; 94760; 97116; 97162; 97530; 99152; 99153; A4620; A6213; A6255; A6257; A6258; A6402; A6449; A7000; A7048; C1725; C1769; J0282; J0461; J0690; J1265; J1644; J1815; J2001; J2060; J2150; J2250; J2270; J2370; J2405; J2440; J2704; J2930; J3010; J3246; J3370; J3475; J3480; J3490; J7030; J7060; J7120; P9045; P9047; Q9967

== ENCOUNTER 2020-08-01 13:54 | Emergency (ER) | payer OTHER, MEDICARE ==
[~2020-08-01] VITALS: Ht 175.3 cm; Wt 79.5 kg
[~2020-08-01 13:54] MED LIST: AMIO200T61 PO; ASPI-41 PO; ATOR40TA PO; COL100C PO; METO25TA6 PO; SILD100T PO
[2020-08-01 13:57] VITALS: BP 145/76
[2020-08-01 14:22] LABS: BASOPHILS % (AUTO) 0.9 % (0-1); EOSINOPHILS # (AUTO) 0.2 X10'3 (0-0.9); HEMATOCRIT 43.8 % (42.0-52.0); HEMOGLOBIN 14.9 g/dl (14.0-17.9); LYMPHOCYTES # (AUTO) 1.7 X10'3 (1.1-4.8); LYMPHOCYTES % (AUTO) 31.3 % (21-51); MEAN CORPUSCULAR HEMOGLOBIN 36.2 PG (27.0-31.0); MEAN CORPUSCULAR HGB CONC 34.1 g/dL (33.0-36.5); MEAN CORPUSCULAR VOLUME 106.1 FL (78-98); MEAN PLATELET VOLUME 7.3 FL (7.4-10.4); MONOCYTES # (AUTO) 0.4 X10'3 (0-0.9); MONOCYTES % (AUTO) 7.7 % (2-12); NEUTROPHILS # (AUTO) 3.1 X10'3 (1.8-7.7); NEUTROPHILS % (AUTO) 57.1 % (42-75); PLATELET COUNT 200 X10'3 (140-440); RED BLOOD COUNT 4.13 X10'6 (4.70-6.10); WHITE BLOOD COUNT 5.3 X10'3 (4.5-11.0)
[2020-08-01 14:42] LABS: ALANINE AMINOTRANSFERASE 66 U/L (12-78); ALBUMIN 3.8 G/DL (3.4-5.0); ALBUMIN/GLOBULIN RATIO 0.9 (1.1-1.5); ALKALINE PHOSPHATASE 76 IU/L (46-116); ANION GAP 7 (8-16); ASPARTATE AMINO TRANSFERASE 37 U/L (10-37); BILIRUBIN,TOTAL 1.4 MG/DL (0.1-1.0); BLOOD UREA NITROGEN 16 MG/DL (7-18); BUN/CREATININE RATIO 15.8 (5.4-32.0); CALCIUM 9.6 MG/DL (8.5-10.1); CHLORIDE 106 MMOL/L (99-107); CREATININE 1.01 MG/DL (0.60-1.10); GLUCOSE 96 MG/DL (70-104); POTASSIUM 3.6 MMOL/L (3.5-5.1); SODIUM 144 MMOL/L (135-145); TOTAL CARBON DIOXIDE 30.9 MMOL/L (24-32); TOTAL PROTEIN 7.9 G/DL (6.4-8.2); eGFR 72 ML/MIN
== END 2020-08-01 14:43 | disposition home or self-care (01) ==
LOC: ER 13:54
DX: R00.1 Bradycardia, unspecified (principal); I25.10 Atherosclerotic heart disease of native coronary artery without angina pectoris; E78.00 Pure hypercholesterolemia, unspecified; I10 Essential (primary) hypertension; Z72.89 Other problems related to lifestyle; Z79.82 Long term (current) use of aspirin; Z79.899 Other long term (current) drug therapy
CPT/HCPCS: 36415; 71045; 80053; 83880; 84484; 85025; 93005; 99285

== ENCOUNTER 2022-12-22 17:34 | Emergency (ER) | payer OTHER, MEDICARE ==
[~2022-12-22] VITALS: Ht 175.3 cm; Wt 81.8 kg
[~2022-12-22 17:34] MED LIST changes: +LOP25T PO; -METO25TA6 PO
[2022-12-22] MEDS ORDERED: acetaminophen 325mg tablet PO ONE (18:40)
[2022-12-22] MEDS ORDERED: normal saline 1000ML IV soln IV ONE (18:50)
[2022-12-22 19:01] LABS: BASOPHILS % (AUTO) 0.1 % (0-1); EOSINOPHILS # (AUTO) 0.2 X10'3 (0-0.9); EOSINOPHILS % (AUTO) 3.4 % (0-6); HEMATOCRIT 41.5 % (42.0-52.0); HEMOGLOBIN 14.3 g/dl (14.0-17.9); LYMPHOCYTES # (AUTO) 0.2 X10'3 (1.1-4.8); MEAN CORPUSCULAR HEMOGLOBIN 35.7 PG (27.0-31.0); MEAN CORPUSCULAR HGB CONC 34.5 g/dL (33.0-36.5); MEAN CORPUSCULAR VOLUME 103.4 FL (78-98); MEAN PLATELET VOLUME 7.7 FL (7.4-10.4); MONOCYTES # (AUTO) 0.1 X10'3 (0-0.9); MONOCYTES % (AUTO) 2.5 % (2-12); NEUTROPHILS # (AUTO) 4.7 X10'3 (1.8-7.7); PLATELET COUNT 144 X10'3 (140-440); RED BLOOD COUNT 4.01 X10'6 (4.70-6.10); RED CELL DISTRIBUTION WIDTH 13.4 % (11.5-14.5); WHITE BLOOD COUNT 5.2 X10'3 (4.5-11.0)
[2022-12-22 19:16] LABS: ALANINE AMINOTRANSFERASE 106 U/L (12-78); ALBUMIN 3.2 G/DL (3.4-5.0); ALBUMIN/GLOBULIN RATIO 0.8 (1.1-1.5); ALKALINE PHOSPHATASE 213 IU/L (46-116); ANION GAP 9 (8-16); ASPARTATE AMINO TRANSFERASE 62 U/L (10-37); BILIRUBIN,TOTAL 2.3 MG/DL (0.1-1.0); BLOOD UREA NITROGEN 25 MG/DL (7-18); BUN/CREATININE RATIO 20.3 (5.4-32.0); CALCIUM 9.5 MG/DL (8.5-10.1); CHLORIDE 100 MMOL/L (99-107); CREATININE 1.23 MG/DL (0.60-1.10); GLUCOSE 125 MG/DL (70-104); POTASSIUM 3.7 MMOL/L (3.5-5.1); SODIUM 132 MMOL/L (135-145); TOTAL CARBON DIOXIDE 22.6 MMOL/L (24-32); TOTAL PROTEIN 7.2 G/DL (6.4-8.2); eGFR 57 ML/MIN
[2022-12-22] MEDS ORDERED: diphenhydrAMINE 25mg capsule PO ONE (19:55)
[2022-12-22 19:58] LABS: MONOTEST NEGATIVE (Neg)
[2022-12-22 21:15] VITALS: BP 145/75
[2022-12-22] MEDS ORDERED: CefTRIAXone 2gm/D5W 50ml BAG 50 ML IV ONE (21:50)
[2022-12-22 22:02] LABS: CLARITY,URINE SLIGHTLY CLOUDY (Clear); GLUCOSE, URINE NEGATIVE (Neg); KETONES,URINE TRACE mg/dl (Neg); LEUKOCYTE ESTERASE ,URINE NEGATIVE (Neg); NITRITES, URINE NEGATIVE (Neg); OCCULT BLOOD,URINE NEGATIVE (Neg); PROTEIN,URINE 100 mg/dl (Neg)
[2022-12-22 22:04] LABS: COLOR,URINE DARK YELLOW (Yellow); UA COLLECTION TYPE CLN CATCH MIDSTREAM
[2022-12-22 22:13] LABS: BACTERIA,URINE 1+ /HPF (Neg); RBC,URINE 0-2 /HPF (0-2); SQUAMOUS EPITHELIAL CELL,UR FEW /LPF (FEW); WBC,URINE 0-4 /HPF (0-4)
[2022-12-22 22:14] LABS: AMORPHOUS URATES 1+; FINE GRANULAR CAST 0-3 /LPF (NEGATIVE)
[2022-12-27] MEDS ORDERED: ASPI-1265 PO (22:14)
[2022-12-27] MEDS ORDERED: CETI10TA15 PO (22:15)
[2022-12-27] MEDS ORDERED: LACT1CAP65 PO (22:16)
[2022-12-27] MEDS ORDERED: MULT-1074 PO (22:16)
[2022-12-27] MEDS ORDERED: FLUT16SP11 BOTHNARES (22:17)
== END 2022-12-22 23:15 | disposition home or self-care (01) ==
LOC: ER 17:35
DX: R21 Rash and other nonspecific skin eruption (principal); R50.9 Fever, unspecified; R53.1 Weakness; M79.18 Myalgia, other site; I25.10 Atherosclerotic heart disease of native coronary artery without angina pectoris; E78.00 Pure hypercholesterolemia, unspecified; I10 Essential (primary) hypertension; Z87.891 Personal history of nicotine dependence; Z95.1 Presence of aortocoronary bypass graft; Z72.89 Other problems related to lifestyle; Z79.82 Long term (current) use of aspirin; Z79.899 Other long term (current) drug therapy
CPT/HCPCS: 36415; 71045; 80053; 81001; 83605; 84145; 85025; 86308; 87040; 96361; 96374; 99284; J0696; J7030; Q0163; 96360

== ENCOUNTER 2023-06-16 16:24 | Inpatient (IN) | payer OTHER, MEDICARE ==
[~2023-06-16] VITALS: Ht 175.3 cm; Wt 90.0 kg
[~2023-06-16 16:24] MED LIST changes: -AMIO200T61 PO; +ASPI-1265 PO; -ASPI-41 PO; -ATOR40TA PO; +CETI10TA15 PO; +CHLO473M2 MM; -COL100C PO; +FLUT16SP11 BOTHNARES; +GUAI600T45 PO; +LACT1CAP65 PO; -LOP25T PO; +MULT-1074 PO; -SILD100T PO
[2023-06-16] MEDS ORDERED: normal saline 1000ml 1,000 ML IV ONE (16:40)
[2023-06-16] MEDS ORDERED: morphine 2 MG/ML inj. syringe IV PRN (16:40)
[2023-06-16] MEDS ORDERED: ceFAZolin 1GM/D5W- ADD-VANTAGE 50 ML IV ONE (16:45)
[2023-06-16] MEDS ORDERED: TETanus/Pertussis (Acell)/Diphther VAC/PF (Tdap-Adult) 0.5ml syringe IMVAC ONE (16:45)
[2023-06-16] MEDS ORDERED: OMEG-5 PO (17:29)
[2023-06-16] MEDS ORDERED: GLUC-241 PO (17:29)
[2023-06-16] MEDS ORDERED: UBID200C37 PO (17:29)
[2023-06-16] MEDS ORDERED: VITA-268 PO (17:29)
[2023-06-16] MEDS ORDERED: ASCO-139 PO (17:29)
[2023-06-16] MEDS ORDERED: TURMERIC PO (17:29)
[2023-06-16] MEDS ORDERED: PSYL1040 PO (17:29)
[2023-06-16] MEDS ORDERED: NAPR-1170 PO (17:29)
[2023-06-16] MEDS ORDERED: PRAS25CA PO (17:29)
[2023-06-16] MEDS ORDERED: CHOL100046 PO (17:29)
[2023-06-16] MEDS ORDERED: ROSU20TA2 PO (17:29)
[2023-06-16] MEDS ORDERED: antivenin, crotalidae fab inj 2 VIAL in normal saline 250ml IV soln 250 ML IV ONE ×2 (17:30)
[2023-06-16 17:43] LABS: BASOPHILS % (AUTO) 0.6 % (0-1); EOSINOPHILS # (AUTO) 0.1 X10'3 (0-0.9); EOSINOPHILS % (AUTO) 2.3 % (0-6); HEMATOCRIT 41.4 % (42.0-52.0); HEMOGLOBIN 14.1 g/dl (14.0-17.9); LYMPHOCYTES # (AUTO) 1.4 X10'3 (1.1-4.8); LYMPHOCYTES % (AUTO) 24.9 % (21-51); MEAN CORPUSCULAR HEMOGLOBIN 35.4 PG (27.0-31.0); MEAN CORPUSCULAR HGB CONC 34.1 g/dL (33.0-36.5); MEAN CORPUSCULAR VOLUME 103.9 FL (78-98); MEAN PLATELET VOLUME 8.1 FL (7.4-10.4); MONOCYTES # (AUTO) 0.4 X10'3 (0-0.9); MONOCYTES % (AUTO) 6.6 % (2-12); NEUTROPHILS # (AUTO) 3.6 X10'3 (1.8-7.7); NEUTROPHILS % (AUTO) 65.6 % (42-75); PLATELET COUNT 51 X10'3 (140-440); RED BLOOD COUNT 3.98 X10'6 (4.70-6.10); RED CELL DISTRIBUTION WIDTH 13.2 % (11.5-14.5); WHITE BLOOD COUNT 5.5 X10'3 (4.5-11.0)
--- NOTE | 2023-06-16 17:50 | NUR ---
CALLED POISON CONTROL TO GET RECOMMENDATIONS. SPOKE TO ANNIA SHE RECOMMENDS HOURLY MEASUREMENT CHECKS (PLACED FLOWSHEET IN ROOM), GIVE 2-6 VIALS OF CROFAB NOW, DRAW INR, PLT AND FIBRINOGEN Q6HRS FOR 24HRS. IF MEASUREMENTS SWELL >2CM OR IF PLT OR FIBRINOGEN <100 GIVE 4-6 VIALS OF CROFAB AND THE 24HR CLOCK FOR LABS STARTS AGAIN.
[2023-06-16 17:59] LABS: ALANINE AMINOTRANSFERASE 55 U/L (12-78); ALBUMIN 4.1 G/DL (3.4-5.0); ALBUMIN/GLOBULIN RATIO 1.3 (1.1-1.5); ALKALINE PHOSPHATASE 69 IU/L (46-116); ANION GAP 10 (8-16); ASPARTATE AMINO TRANSFERASE 37 U/L (10-37); BILIRUBIN,TOTAL 1.8 MG/DL (0.1-1.0); BLOOD UREA NITROGEN 27 MG/DL (7-18); BUN/CREATININE RATIO 21.4 (10.0-20.0); CALCIUM 9.4 MG/DL (8.5-10.1); CHLORIDE 108 MMOL/L (99-107); CREATININE 1.26 MG/DL (0.60-1.10); GLUCOSE 95 MG/DL (70-104); POTASSIUM 3.7 MMOL/L (3.5-5.1); SODIUM 144 MMOL/L (135-145); TOTAL CARBON DIOXIDE 25.6 MMOL/L (24-32); TOTAL PROTEIN 7.2 G/DL (6.4-8.2); eCRCL 49 ML/MIN; eGFR 55 ML/MIN
[2023-06-16] MEDS ORDERED: potassium Cl 40MEQ/1/2NS 520ml 520 ML IV PRN (18:05)
[2023-06-16] MEDS ORDERED: magnesium Cl slow-release 64mg tablet PO PRN (18:05)
[2023-06-16] MEDS ORDERED: magnesium 4gm in 100ml NS 100 ML IV PRN (18:05)
[2023-06-16] MEDS ORDERED: ondansetron/PF 4mg/2ml inj IV PRN (18:05)
[2023-06-16] MEDS ORDERED: magnesium 2GM in 50ml NS 50 ML IV PRN (18:05)
[2023-06-16] MEDS ORDERED: mag hydrox/Alum hydrox/simeth 30ml oral suspension PO PRN (18:05)
[2023-06-16] MEDS ORDERED: magnesium hydroxide 30ml (MOM) UD suspension PO PRN (18:05)
[2023-06-16] MEDS ORDERED: acetaminophen 325mg tablet PO PRN (18:05)
[2023-06-16] MEDS ORDERED: potassium Cl 20 mEq SR tablet PO PRN ×2 (18:05)
--- NOTE | 2023-06-16 18:06 | NUR ---
pt refuses tetanus vaccine, pt was educated, pt verbalizes understanding
[2023-06-16 18:09] LABS: APTT 29 SECONDS (22-32); INR 1.2 INR; PROTHROMBIN TIME 12.7 SECONDS (9.0-12.0)
[2023-06-16 18:12] LABS: D-DIMER 0.23 MG/L FEU (0-0.50)
--- NOTE | 2023-06-16 18:15 | NUR ---
ASSUMED CARE OF PATIENT FROM TAMMIE KIMBROUGH. ALLYSON SHERMAN IN ROOM WORKING ON ADMISSION. PT SITTING IN BED WITH EVEN AND UNLABORED RESPIRATIONS. PATIENT IS ALERT AND ORIENTED X 4. PT DENIES ANY NEEDS AT THIS TIME.
[2023-06-16 18:18] LABS: AMYLASE 39 U/L (25-115); CKMB RELATIVE INDEX 1.5 RATIO (0-2.5); CREATINE KINASE 164 U/L (39-308); CREATINE KINASE MB 2.4 ng/ml (0.3-3.6); ETHANOL < 10 MG/DL (<10); LIPASE 54 U/L (73-393)
[2023-06-16 18:34] LABS: PLATELET ESTIMATE DECREASED
[2023-06-16 18:35] LABS: BURR CELLS 2+
--- NOTE | 2023-06-16 18:45 | NUR ---
LOW SODIUM TRAY ORDERED FOR PT
[2023-06-16 19:16] LABS: BILIRUBIN,URINE NEGATIVE (Neg); CLARITY,URINE CLEAR (Clear); GLUCOSE, URINE NEGATIVE (Neg); KETONES,URINE NEGATIVE (Neg); LEUKOCYTE ESTERASE ,URINE NEGATIVE (Neg); NITRITES, URINE NEGATIVE (Neg); OCCULT BLOOD,URINE NEGATIVE (Neg); PH,URINE 5.5 (4.8-8.0); PROTEIN,URINE NEGATIVE (Neg); UROBILINOGEN,URINE 0.2 E.U/dL (0.2-1.0)
[2023-06-16 19:20] LABS: COLOR,URINE DARK YELLOW (Yellow); UA COLLECTION TYPE CLN CATCH MIDSTREAM
[2023-06-16] MEDS: K and/or MAG REPLACEMENT MC SCH (20:00)
[2023-06-16] MEDS: docusate sod 100mg capsule PO SCH (20:00)
--- NOTE | 2023-06-16 20:02 | NUR ---
PATIENT GIVEN LOW SODIUM DIET.
--- NOTE | 2023-06-16 20:20 | NUR ---
MEASUREMENTS FOR [place] [facility] ANTIVENOM ADMINISTRATION CHECKLIST COMPLETED. SEE PAPER FOR MORE INFORMATION. PATIENT EATING, RESPIRATIONS ARE EVEN AND UNLABORED, PT IN NO ACUTE DISTRESS. DENIES ANY NEEDS AT THIS TIME.
--- NOTE | 2023-06-16 21:27 | NUR ---
Patient ambulated to the restroom with assistance from with steady gait. Denies dizziness at this time.
--- NOTE | 2023-06-16 22:15 | NUR ---
Measurements documented for [place] [facility] Antivenom Administration Checklist. See paper for more information. Patient in bed in no acute distress. Respirations are even and unlabored. Pt denies any new neds. RT at bedside.
--- NOTE | 2023-06-16 23:28 | NUR ---
Spoke with Whitley from [place] [facility]. Notified Elian of PT, INR, and PLT lab results, 2 vials of Crofab given, and taking hourly measurements. Notified Elian new set of labs drawn at 2321 post 6 hours after initial labs. Elian stated if PLT or fibrinogen come back below 100, he recommended giving the patient 6 vials of additional Crofab. Elian stated he would call back again later to check on patient data collector could reach out with any additional needs. RN verbalized understanding.
--- NOTE | 2023-06-16 23:35 | NUR ---
patient hospital bed no needs at this time
[2023-06-16 23:40] LABS: BASOPHILS % (AUTO) 0.5 % (0-1); EOSINOPHILS # (AUTO) 0.1 X10'3 (0-0.9); EOSINOPHILS % (AUTO) 1.7 % (0-6); HEMATOCRIT 41.2 % (42.0-52.0); HEMOGLOBIN 13.9 g/dl (14.0-17.9); LYMPHOCYTES # (AUTO) 1.6 X10'3 (1.1-4.8); LYMPHOCYTES % (AUTO) 20.6 % (21-51); MEAN CORPUSCULAR HEMOGLOBIN 35.7 PG (27.0-31.0); MEAN CORPUSCULAR HGB CONC 33.8 g/dL (33.0-36.5); MEAN CORPUSCULAR VOLUME 105.6 FL (78-98); MEAN PLATELET VOLUME 7.3 FL (7.4-10.4); MONOCYTES # (AUTO) 0.7 X10'3 (0-0.9); MONOCYTES % (AUTO) 8.7 % (2-12); NEUTROPHILS # (AUTO) 5.3 X10'3 (1.8-7.7); NEUTROPHILS % (AUTO) 68.5 % (42-75); RED CELL DISTRIBUTION WIDTH 13.1 % (11.5-14.5); WHITE BLOOD COUNT 7.7 X10'3 (4.5-11.0)
[2023-06-16 23:44] LABS: APTT 28 SECONDS (22-32); FIBRINOGEN 232 MG/DL (177-424); INR 1.2 INR; PROTHROMBIN TIME 13.1 SECONDS (9.0-12.0)
[2023-06-17] VITALS (13 sets, daily range): BP systolic 126–156; BP diastolic 50–94; PULSE 41–57; RESP 15–18; TEMP 96.4–98.4; O2SAT 94–98
--- NOTE | 2023-06-17 00:15 | NUR ---
Measurements for [place] [facility] Antivenom Administration checklist. Per checklist, patient's swelling is decreasing in all three marked areas. See checklist for more information. Patient resting in bed with eyes closed in no acute distress. Respirations even and unlabored. Pt's right arm is elevated on pillows. Denies any additional needs at this time.
[2023-06-17 00:22] LABS: PLATELET COUNT 86 X10'3 (140-440)
--- NOTE | 2023-06-17 00:33 | NUR ---
CALLED AND SPOKE WITH DR HENDERSON. NOTIFIED DR HENDERSON OF PLT-82, PT SWELLING DECREASING, AND PT DOES NOT HAVE ANY COMPLAINTS. STATED POISON CONTROL RECOMMENDED ANOTHER 6 VIALS OF CROFAB IF PLT COUNT <100. DR HENDERSON STATED TO FOLLOW POISON CONTROL'S RECOMMENDATIONS.
[2023-06-17] MEDS ORDERED: antivenin, crotalidae fab inj 6 VIAL in normal saline 250ml IV soln 250 ML IV STA ×2 (00:37)
--- NOTE | 2023-06-17 00:48 | NUR ---
N[facility]ARD HELPER PHONE #
--- NOTE | 2023-06-17 01:17 | NUR ---
Patient laying in bed with eye closed. Respirations are even and unlabored. Notified patient of need to administer more Crofab based upon PLT count. Pt verbalized understanding. Measurements for [place] [facility] Antivenom Administration Checklist taken. See checklist for more measurement information. Pt denied any needs at this time.
--- NOTE | 2023-06-17 02:29 | NUR ---
Patient resting quietly in bed with eyes closed. Measurements for [place] [facility] Antivenom Checklist taken. See checklist for measurement information. Respirations even and unlabored. Crofab initiated. Pt denies any additional needs at this time.
--- NOTE | 2023-06-17 03:15 | NUR ---
PATIENT RESTING IN BED WITH EYES CLOSED IN NO ACUTE DISTRESS. RESPIRATIONS ARE EVEN AND UNLABORED. MEASUREMENTS FOR [place] [facility] ANTIVENOM CHECKLIST TAKEN. SEE CHECKLIST FOR MEASUREMENTS. PT DENIES ANY NEEDS AT THIS TIME.
--- NOTE | 2023-06-17 04:15 | NUR ---
PATIENT RESTING IN BED WITH EYES CLOSED. PT IN NO ACUE DISTRESS. RESPIRATIONS ARE EVEN AND UNLABORED. MEASUREMENTS TAKEN AND CHARTED ON [place] [facility] ANTIVENOM CHECKLIST. SEE CHECKLIST FOR MORE INFORMATION. PT DENIES ANY NEEDS AT THIS TIME.
--- NOTE | 2023-06-17 05:16 | NUR ---
PATIENT RESTING IN BED WITH EYES CLOSED. PT IN NO ACUTE DISTRESS. RESPIRATION ARE EVEN AND UNLABBORED. MEASUREMENTS TAKEN AND CHARTED ON [place] [facility] ANTIVENOM CHECKLIST. SEE CHECKLIST FOR MORE INFORMATION. PT DENIES ANY NEEDS AT THIS TIME
--- NOTE | 2023-06-17 06:34 | NUR ---
Patient resting in bed with eyes closed. Pt in no acute distress. Respirations are even and unlabored. Pt denies any needs at this time. Measurements taken and charted on checklist.
[2023-06-17] MEDS: docusate sod 100mg capsule PO SCH ×2 (08:00→20:00)
[2023-06-17] MEDS: K and/or MAG REPLACEMENT MC SCH ×2 (08:00→20:00)
--- NOTE | 2023-06-17 08:26 | NUR ---
Poison Control called wants an update about the patient. Spoke to Ross. I also called lab to remind about the morning labs due
[2023-06-17 08:48] LABS: BASOPHILS % (AUTO) 0.8 % (0-1); EOSINOPHILS # (AUTO) 0.1 X10'3 (0-0.9); EOSINOPHILS % (AUTO) 2.5 % (0-6); HEMATOCRIT 41.6 % (42.0-52.0); HEMOGLOBIN 14.2 g/dl (14.0-17.9); LYMPHOCYTES # (AUTO) 1.4 X10'3 (1.1-4.8); MEAN CORPUSCULAR HEMOGLOBIN 36.2 PG (27.0-31.0); MEAN CORPUSCULAR HGB CONC 34.2 g/dL (33.0-36.5); MEAN CORPUSCULAR VOLUME 105.8 FL (78-98); MEAN PLATELET VOLUME 7.3 FL (7.4-10.4); MONOCYTES # (AUTO) 0.4 X10'3 (0-0.9); MONOCYTES % (AUTO) 7.8 % (2-12); NEUTROPHILS # (AUTO) 3.6 X10'3 (1.8-7.7); NEUTROPHILS % (AUTO) 63.9 % (42-75); PLATELET COUNT 163 X10'3 (140-440); RED BLOOD COUNT 3.93 X10'6 (4.70-6.10); RED CELL DISTRIBUTION WIDTH 13.2 % (11.5-14.5); WHITE BLOOD COUNT 5.7 X10'3 (4.5-11.0)
[2023-06-17 09:02] LABS: CALCIUM 8.9 MG/DL (8.5-10.1)
[2023-06-17 09:09] LABS: ALANINE AMINOTRANSFERASE 48 U/L (12-78); ALBUMIN 3.5 G/DL (3.4-5.0); ALBUMIN/GLOBULIN RATIO 1.2 (1.1-1.5); ALKALINE PHOSPHATASE 57 IU/L (46-116); ANION GAP 6 (8-16); ASPARTATE AMINO TRANSFERASE 34 U/L (10-37); BILIRUBIN,TOTAL 1.9 MG/DL (0.1-1.0); BLOOD UREA NITROGEN 26 MG/DL (7-18); CHLORIDE 109 MMOL/L (99-107); CREATININE 1.18 MG/DL (0.60-1.10); GLUCOSE 103 MG/DL (70-104); MAGNESIUM 1.9 MG/DL (1.5-2.4); POTASSIUM 4.1 MMOL/L (3.5-5.1); SODIUM 142 MMOL/L (135-145); TOTAL PROTEIN 6.5 G/DL (6.4-8.2); eCRCL 52 ML/MIN; eGFR 60 ML/MIN
[2023-06-17 09:15] LABS: APTT 28 SECONDS (22-32); INR 1.2 INR; PROTHROMBIN TIME 12.4 SECONDS (9.0-12.0)
[2023-06-17 09:19] LABS: FIBRINOGEN 293 MG/DL (177-424)
--- NOTE | 2023-06-17 10:06 | NUR ---
Phone conversation with poison control Ross at this time, update given with lab results and patient status as well as vital signs. Per poison control plt and fibrinogen lab repeat at 2200 this evening and then prior to DC at 0000 on 06/18/22. If <100 PLT and fibrinogen or increase in swelling then give additional crofab 4-6 vials.
--- NOTE | 2023-06-17 17:17 | NUR ---
Called poison control spoke with LUIS E Arambula reported right upper arm circumference increased more than 2 cm, recommends crofab 4-6 vials, monitor patient x 24 hours after last dose, fibrinogen every 8 hours and platelet level Q 24 hours.
[2023-06-17] MEDS ORDERED: antivenin, crotalidae fab inj 4 VIAL in normal saline 250ml IV soln 250 ML IV STA ×2 (17:18)
--- NOTE | 2023-06-17 17:36 | NUR ---
Called pharmacy, [place] not ready yet.
--- NOTE | 2023-06-17 18:11 | NUR ---
Problems reprioritized. Patient report given, questions answered & plan of care reviewed with Yamilet KIMBROUGH.
[2023-06-17] MEDS ORDERED: atorvastatin 20mg tablet PO SCH (21:00)
[2023-06-17 22:43] LABS: BASOPHILS % (AUTO) 0.3 % (0-1); EOSINOPHILS # (AUTO) 0.2 X10'3 (0-0.9); EOSINOPHILS % (AUTO) 2.9 % (0-6); HEMATOCRIT 41.7 % (42.0-52.0); HEMOGLOBIN 14.1 g/dl (14.0-17.9); LYMPHOCYTES # (AUTO) 1.6 X10'3 (1.1-4.8); LYMPHOCYTES % (AUTO) 27.2 % (21-51); MEAN CORPUSCULAR HEMOGLOBIN 35.7 PG (27.0-31.0); MEAN CORPUSCULAR HGB CONC 33.7 g/dL (33.0-36.5); MEAN CORPUSCULAR VOLUME 105.8 FL (78-98); MEAN PLATELET VOLUME 7.6 FL (7.4-10.4); MONOCYTES # (AUTO) 0.5 X10'3 (0-0.9); MONOCYTES % (AUTO) 7.6 % (2-12); NEUTROPHILS # (AUTO) 3.7 X10'3 (1.8-7.7); PLATELET COUNT 158 X10'3 (140-440); RED BLOOD COUNT 3.94 X10'6 (4.70-6.10); RED CELL DISTRIBUTION WIDTH 13.3 % (11.5-14.5)
[2023-06-17 22:55] LABS: ALANINE AMINOTRANSFERASE 46 U/L (12-78); ALBUMIN 3.4 G/DL (3.4-5.0); ALBUMIN/GLOBULIN RATIO 1.1 (1.1-1.5); ALKALINE PHOSPHATASE 68 IU/L (46-116); ANION GAP 6 (8-16); ASPARTATE AMINO TRANSFERASE 35 U/L (10-37); BILIRUBIN,TOTAL 1.3 MG/DL (0.1-1.0); BLOOD UREA NITROGEN 26 MG/DL (7-18); BUN/CREATININE RATIO 21.1 (10.0-20.0); CALCIUM 9.2 MG/DL (8.5-10.1); CHLORIDE 107 MMOL/L (99-107); CREATININE 1.23 MG/DL (0.60-1.10); GLUCOSE 90 MG/DL (70-104); MAGNESIUM 1.9 MG/DL (1.5-2.4); POTASSIUM 3.7 MMOL/L (3.5-5.1); SODIUM 142 MMOL/L (135-145); TOTAL CARBON DIOXIDE 28.9 MMOL/L (24-32); TOTAL PROTEIN 6.5 G/DL (6.4-8.2); eCRCL 50 ML/MIN; eGFR 57 ML/MIN
--- NOTE | 2023-06-17 22:55 | NUR ---
circ of rt arm not increasing in size at this time - stable at 35cm bicep
[2023-06-17 23:00] LABS: FIBRINOGEN 305 MG/DL (177-424)
[2023-06-18] VITALS (13 sets, daily range): BP systolic 120–146; BP diastolic 55–70; PULSE 43–56; RESP 10–18; TEMP 97–97.9; O2SAT 94–98
[2023-06-18 05:57] LABS: MAGNESIUM 1.7 MG/DL (1.5-2.4); POTASSIUM 3.6 MMOL/L (3.5-5.1)
[2023-06-18 06:15] LABS: FIBRINOGEN 266 MG/DL (177-424)
[2023-06-18 06:26] LABS: BASOPHILS # (AUTO) 0.1 X10'3 (0-0.2); BASOPHILS % (AUTO) 1.2 % (0-1); EOSINOPHILS # (AUTO) 0.2 X10'3 (0-0.9); EOSINOPHILS % (AUTO) 4.1 % (0-6); HEMATOCRIT 37.6 % (42.0-52.0); HEMOGLOBIN 12.8 g/dl (14.0-17.9); LYMPHOCYTES # (AUTO) 1.4 X10'3 (1.1-4.8); MEAN CORPUSCULAR HEMOGLOBIN 35.6 PG (27.0-31.0); MEAN CORPUSCULAR HGB CONC 33.9 g/dL (33.0-36.5); MEAN CORPUSCULAR VOLUME 104.8 FL (78-98); MEAN PLATELET VOLUME 7.8 FL (7.4-10.4); MONOCYTES # (AUTO) 0.4 X10'3 (0-0.9); MONOCYTES % (AUTO) 7.4 % (2-12); NEUTROPHILS % (AUTO) 59.3 % (42-75); PLATELET COUNT 146 X10'3 (140-440); RED BLOOD COUNT 3.59 X10'6 (4.70-6.10); RED CELL DISTRIBUTION WIDTH 13.2 % (11.5-14.5)
[2023-06-18] MEDS: K and/or MAG REPLACEMENT MC SCH (07:39)
[2023-06-18] MEDS: docusate sod 100mg capsule PO SCH (08:00)
--- NOTE | 2023-06-18 12:00 | NUR ---
Follow up telephone call with poison control: Provided information VS, Lab values for fibrinogen and Platelets , swelling tracking, and vial total doses of Crofab (10). Recommendation for continued monitoring for a total of 24 hours post last dose of Crofab Anti venin, Interventionalist is notified. and transfer orders are received.
[2023-06-18 13:54] LABS: FIBRINOGEN 305 MG/DL (177-424)
--- NOTE | 2023-06-18 14:09 | NUR ---
Report to Sidney KIMBROUGH. Stable for transfer. Rm [id number].
[2023-06-18 16:32] LABS: ALBUMIN 3.8 G/DL (3.4-5.0); ANION GAP 7 (8-16); BLOOD UREA NITROGEN 22 MG/DL (7-18); BUN/CREATININE RATIO 19.3 (10.0-20.0); CALCIUM 9.5 MG/DL (8.5-10.1); CHLORIDE 105 MMOL/L (99-107); CREATININE 1.14 MG/DL (0.60-1.10); GLUCOSE 108 MG/DL (70-104); SODIUM 141 MMOL/L (135-145); eCRCL 54 ML/MIN; eGFR 62 ML/MIN
[2023-06-18] MEDS ORDERED: CEPH500C2 PO (16:55)
--- NOTE | 2023-06-18 18:14 | NUR ---
Pt stable for discharge. Patient signed all discharge paperwork. Wound care pictures taken upon d/c. Patient had 0 c/o pain at time of discharge. Patient walked out of facility with spouse present and with the presence of 1 staff member. pt left in private vehicle with spouse to go home. D/c @ 1810.
== END 2023-06-18 18:10 | disposition home or self-care (01) | DRG 918 ==
LOC: ER 16:25 → ED HOLD 18:12 → CICU 2S 06-17 12:13 → ORTHO 4S 06-18 14:00
PROVIDERS: ADMIT Internal Medicine Critical Care Medicine; ATTEND Internal Medicine Critical Care Medicine
DX: T63.011A Toxic effect of rattlesnake venom, accidental (unintentional), initial encounter (principal); G47.33 Obstructive sleep apnea (adult) (pediatric); D69.6 Thrombocytopenia, unspecified; I25.10 Atherosclerotic heart disease of native coronary artery without angina pectoris; N18.9 Chronic kidney disease, unspecified; I12.9 Hypertensive chronic kidney disease with stage 1 through stage 4 chronic kidney disease, or unspecified chronic kidney disease; E78.00 Pure hypercholesterolemia, unspecified; Z87.891 Personal history of nicotine dependence; Z88.1 Allergy status to other antibiotic agents; Z95.1 Presence of aortocoronary bypass graft; Z28.21 Immunization not carried out because of patient refusal; Z98.52 Vasectomy status; Z82.49 Family history of ischemic heart disease and other diseases of the circulatory system; Z79.899 Other long term (current) drug therapy; Z79.82 Long term (current) use of aspirin; Y92.89 Other specified places as the place of occurrence of the external cause
CPT/HCPCS: 36415; 71045; 80048; 80053; 80320; 81003; 82150; 82550; 82553; 83690; 83735; 83874; 84132; 85008; 85025; 85379; 85384; 85610; 85730; 86885; 86900; 86901; 87081; 90715; 93005; 99285; G0378; J0690; J0840; J7030; J7050